=== PATIENT | female | born 1965 | race Caucasian/White ===

== ENCOUNTER → 2023-12-02 08:19 | Outpatient (REF) | payer OTHER, SELFPAY | LOC: HWWDC 08:19 | PROVIDERS: ATTENDING PHYSICIAN Nurse Practitioner | DX: Z12.31 Encounter for screening mammogram for malignant neoplasm of breast (principal) | CPT/HCPCS: 77063; 77067 ==

== ENCOUNTER → 2025-02-17 07:35 | Outpatient (REF) | payer BC, SELFPAY | LOC: HWWDC 07:35 | DX: Z12.31 Encounter for screening mammogram for malignant neoplasm of breast (principal) | CPT/HCPCS: 77063; 77067 ==